=== PATIENT | female | born 1975 | race Caucasian/White ===

== ENCOUNTER → 2018-06-13 | Outpatient (CLI) | payer BC, OTHER ==
[2018-06-13] MEDS: SOD CHLORIDE 0.9% 100 ML (14:33)
[2018-06-13] MEDS: IOHEXOL 300MG/ML 150 ML BTL (14:33)
== END | disposition home or self-care (01) ==
LOC: C/S 13:58
DX: K37 Unspecified appendicitis (principal); R10.31 Right lower quadrant pain
CPT/HCPCS: 74177